=== PATIENT | male | born 1970 | race Caucasian/White ===

== ENCOUNTER 2017-06-23 14:29 | Emergency (ER) | payer OTHER ==
[2017-06-23] MEDS ORDERED: KETOROLAC 60 MG/2 ML VIAL IM STA (15:38)
[2017-06-23] MEDS ORDERED: predniSONE 20 MG TABLET PO STA (15:38)
[2017-06-23] MEDS ORDERED: HYDROcod/ACETAM 5/325 MG TABLET PO STA (15:38)
[2017-06-23] MEDS ORDERED: predniSONE 20 MG TABLET ONE (15:55)
[2017-06-23] MEDS ORDERED: HYDROcod/ACETAM 5/325 MG TABLET ONE (15:55)
[2017-06-23] MEDS ORDERED: KETOROLAC 60 MG/2 ML VIAL ONE (15:56)
--- NOTE | 2017-06-23 16:31 | CT Preliminary Report ---
Exam: CT Lumbar Spine W/O IMPRESSION: 1. Moderate L4-L5 and mild L3-L4 disk degenerative disease. No significant stenosis. No fracture or s ubluxation. [facility] SITE ID: [id number]
[2017-06-23 16:33] VITALS: BP 125/76
--- NOTE | 2017-06-23 16:33 | CT Report ---
EXAM: CT LUMBAR SPINE WITHOUT CONTRAST EXAM DATE: 06/23/2017 04:01 PM. CLINICAL HISTORY: L4-L5 pain /tenderness. COMPARISONS: None. TECHNIQUE: Thin-section axial images were acquired of the lumbar spine from T12 to S1 without contras t. Post-processing: Coronal and sagittal reformats. Other: None. In accordance with CT protocol optimization, one or more of the following dose reduction techniques w ere utilized for this exam: automated exposure control, adjustment of mA and/or KV based on patient s ize, or use of iterative reconstructive technique. FINDINGS: Alignment: No scoliosis or subluxation. Bones: Five [id number] lumbar vertebral bodies are present. There are old fractures of the left L2, L3, and L4 transverse process. No acute fracture demonstrated. Disk Levels/Facets: T12-L1: Unremarkable. L1-L2: Unremarkable. L2-L3: Unremarkable. L3-L4: Mild disk height loss with disk bold. No significant stenosis. L4-L5: Moderate disk height loss and disk bulge without significant stenosis. L5-S1: Degenerative disk disease with disco gas without stenosis. Musculature: Normal. No fatty atrophy. Other: The visualized pelvic cavity is unremarkable. IMPRESSION: 1. Moderate L4-L5 and mild L3-L4 disk degenerative disease. No significant stenosis. No fracture or s ubluxation. [facility] Referring Provider Line: [phone] SITE ID: [id number]
--- NOTE | 2017-06-23 17:20 | ED Physician Documentation ---
History of Present Illness - Stated complaint Stated Complaint: LOWER BACK PX - Chief complaint Chief Complaint: Back Pain - Additonal information Additional information: Patient is a 47-year-old man with a history of low back pain problems in the past. Approximately once a year he gets a severe episode of low back pain. Over the last couple of days he has had increased low back pain. There is no obvious injury noted. Pain is in the lower back area essentially does not radiate. He does not have any weakness in the legs there is no bowel or bladder complaints. Denies any numbness or tingling. There is no fever chills and there is no history of recent or remote trauma. He has been trying physical therapy with some variable relief but now is requesting additional help for his low back pain. Review of systems: For pertinent positive and negatives in the review of systems please see the history of present illness, otherwise all other systems have been reviewed and are negative. Dragon disclaimer: Parts of this medical record were created using voice recognition technology. Because of the inherent limitations of this system, occasional same sounding word substitutions do occur and persist despite proofreading. Please read the document for context. Review of Systems Constitutional: denies: Fever, Chills Musculoskeletal: denies: Joint pain, Extremity swelling, Joint swelling PD PAST MEDICAL HISTORY - Past Medical History Cardiovascular: High cholesterol Other Past Medical History: restless leg syndrome, chronic back pain, sleep apnea - Past Surgical History Past Surgical History: Yes - Present Medications Home Medications: Ambulatory Orders Medication Instructions Recorded Confirmed Hydrochlorothiazide 25 mg PO DAILY 06/05/15 06/23/17 Aspirin 81 mg PO DAILY 06/23/17 06/23/17 Atorvastatin [Lipitor] 10 mg PO DAILY 06/23/17 06/23/17 Gabapentin [Neurontin] 100 mg PO DAILY 06/23/17 06/23/17 HYDROcod/ACETAM 5/325 [Benton 5/325] 1 - 2 ea PO Q6H PRN #20 tablet 06/23/17 Ibuprofen 600 mg PO TID PRN #14 tablet 06/23/17 Prednisone 40 mg PO DAILY #8 tablet 06/23/17 - Allergies Allergies/Adverse Reactions: Allergies Allergy/AdvReac Type Severity Reaction Status Date / Time No Known Drug Allergies Allergy Verified 06/23/17 15:00 - Social History Does the pt smoke?: No Smoking Status: Never smoker Does the pt drink ETOH?: No Does the pt have substance abuse?: No - Immunizations Immunizations are current?: Yes - POLST Patient has POLST: No PD ED PE NORMAL - Vitals Vital signs reviewed: Yes - General General: Alert and oriented X 3, No acute distress, Well developed/nourished, Other (Well-appearing large habitus male sitting in the bed stiffly) - HEENT HEENT: Atraumatic, PERRL - Neck Neck: Supple, no meningeal sign, No JVD, No bruit - Cardiac Cardiac: RRR, No murmur - Respiratory Respiratory: No respiratory distress - Abdomen Abdomen: Normal bowel sounds, Soft, Non tender, Non distended - Derm Derm: Normal color, Warm and dry, No rash, Other - Extremities Extremities: No deformity, Normal ROM s pain, No edema - Neuro Neuro: Alert and oriented X 3, No motor deficit, No sensory deficit - Psych Psych: Normal mood, Normal affect Results - Vitals Vitals: Vital Signs - 24 hr 06/23/17 06/23/17 14:37 16:33 Temperature 36.9 C 36.3 C L Heart Rate 63 58 L Respiratory 18 18 Rate Blood Pressure 136/70 H 125/76 O2 Saturation 98 98 Oxygen O2 Source Room air PD MEDICAL DECISION MAKING - ED course Complexity details: reviewed old records, reviewed results, re-evaluated patient , d/w patient, d/w family ED course: Well-appearing 47-year-old man with low back pain on examination his low back tenderness of the adjacent L4-L5 area. He has no sciatica complaints and has a normal neurologic exam on today. There is no weakness numbness or loss of reflexes. A CT scan was performed of his back and is got mild DJD of the lumbar spine but no serious findings were found. He was given Toradol prednisone and Vicodin and feels much better. Will continue him on multimodal therapy with nonsteroidal anti-inflammatory corticosteroids and narcotic analgesia. Disposition: To home Clinical impression: 1. Acute low back pain and strain Departure - Departure Disposition: 01 , Self Care Clinical Impression: Back pain Condition: Good Instructions: ED Low Back Pain Injury, IBUPROFEN (Adult), NARCOTIC, Oral Prescriptions: Ibuprofen 600 mg PO TID PRN #14 tablet PRN Reason: Pain HYDROcod/ACETAM 5/325 [Benton 5/325] 1 - 2 ea PO Q6H PRN #20 tablet PRN Reason: Pain Prednisone 40 mg PO DAILY #8 tablet
== END 2017-06-23 17:36 | disposition home or self-care (01) ==
LOC: ED 14:29
DX: S39.012A Strain of muscle, fascia and tendon of lower back, initial encounter (principal); X58.XXXA Exposure to other specified factors, initial encounter
CPT/HCPCS: 72131; 96372; 99283; A9270; J7512